=== PATIENT | female | born 1960 | race Caucasian/White ===

== ENCOUNTER 2020-07-21 08:43 | Outpatient (CLI) | payer MEDICARE, OTHER, SELFPAY ==
--- NOTE | ~2020-07-21 | MM_ITS ---
EXAMINATION: MM screening juan [facility] BI w davina HISTORY: Screening TECHNIQUE: Craniocaudal and mediolateral oblique 3-D tomosynthesis images were obtained and synthetic 2-D images were generated. CAD analysis was submitted and interpreted. COMPARISON: Comparison to multiple prior studies sequentially, with oldest reviewed study dated 07/07. BREAST PARENCHYMAL COMPOSITION: The breasts are heterogeneously dense, which may obscure small masses . FINDINGS: There is no evidence of suspicious mass, calcification, or architectural distortion to sugg est malignancy in either breast. There has been no suspicious interval change. IMPRESSION: 1. No mammographic evidence of malignancy. 2. Recommend routine screening mammography in one year. BI-RADS Category 1: Negative Reviewed, dictated and finalized at location A.
--- NOTE | ~2020-07-21 | DEXA_ITS ---
Bone Density Report Name: Denita Eckert Age: 60 Sex: Female Ethnicity: White Date of : 1960 Indication: postmenopausal; parental hip fracture; prior fracture; hysterectomy; Referring Provider: Flora Alvarenga Study: Bone densitometry was performed. Exam Date: July 21, 2020 Accession number: [id number] Bone Density: Region BMD T-score Z-score Classification AP Spine (L1-L4) 0.740 -2.8 -1.2 Osteoporosis Femoral Neck (Left) 0.569 -2.5 -1.1 Osteoporosis Total Hip (Left) 0.712 -1.9 -0.8 Osteopenia Total Hip Bilateral Avg 0.721 -1.8 -0.8 Osteopenia Femoral Neck (Right) 0.535 -2.8 -1.4 Osteoporosis Total Hip (Right) 0.729 -1.7 -0.7 Osteopenia World Health Organization criteria for BMD impression classify patients as: Normal (T-score at or above -1.0), Osteopenia (T-score between -1.0 and -2.5), or Osteoporosis (T-score at or below -2.5). 10-year Fracture Risk: FRAX not reported because: Some T-score for Spine Total or Hip Total or Femoral Neck at or below -2.5 Treated for osteoporosis Clinical Information Provided by Patient: Has had a low trauma fracture Parent has had a hip fracture Is being treated for osteoporosis Has used the following medications: Fosamax (i.e. alendronate), Vitamin D, Calcium Has the following medical conditions: Hysterectomy Patient maximum height was 60 Menopause Age: 28 Does not regularly consume dairy products Onset of menses at age 10 Number of children 2 Impression: The patient has established osteoporosis, based on the Total Spine T-score and the existence of a prior fracture. The patient has risk factors, including: parental hip fracture, previous fracture. Discussion: It is important to ask patients whether they are taking their medications and to encourage continued and appropriate compliance with their osteoporosis therapies to reduce fracture risk. It is also important to review their risk factors and encourage appropriate calcium and vitamin D intakes, exercise, fall prevention and other lifestyle measures. Follow-Up: Consider a repeat BMD and Vertebral Fracture Assessment (VFA) exam in 2 years or sooner if medically necessary, to reassess this patient's status. Reported by: HERMINIA on 07/21/2020 9:12:00 AM. Reviewed, dictated and finalized at location AAlessandro STOKES
== END 2020-07-21 08:44 | disposition home or self-care (01) ==
LOC: ANHIMG 08:48
PROVIDERS: PCP Family Medicine; Visit Provider Physician Assistant
DX: Z12.31 Encounter for screening mammogram for malignant neoplasm of breast (principal); Z78.0 Asymptomatic menopausal state; M85.89 Other specified disorders of bone density and structure, multiple sites; M81.0 Age-related osteoporosis without current pathological fracture
CPT/HCPCS: 77063; 77067; 77080

== ENCOUNTER 2021-09-29 09:24 | Outpatient (CLI) | payer MEDICARE, OTHER, SELFPAY ==
--- NOTE | ~2021-09-29 | MM_ITS ---
EXAMINATION: MM screening [facility] BI w davina HISTORY: Screening mammogram TECHNIQUE: Craniocaudal and mediolateral oblique 3-D tomosynthesis images were obtained and synthetic 2-D images were generated. CAD analysis was submitted and interpreted. COMPARISON: 07/21/2020, 07/08/2017, 11/07/2014 BREAST PARENCHYMAL COMPOSITION: There are scattered areas of fibroglandular density. FINDINGS: There is no suspicious mass, calcification, or architectural distortion to suggest malignan cy in either breast. There has been no suspicious interval change. IMPRESSION: 1. No mammographic evidence of malignancy. 2. Recommend routine screening mammography in one year. BI-RADS Category 1: Negative Reviewed, dictated and finalized at location A.
== END 2021-09-29 09:25 | disposition home or self-care (01) ==
PROVIDERS: PCP Family Medicine; Visit Provider Family Medicine
DX: Z12.31 Encounter for screening mammogram for malignant neoplasm of breast (principal)
CPT/HCPCS: 77063; 77067

== ENCOUNTER 2022-12-30 09:22 | Outpatient (CLI) | payer MEDICARE, OTHER, SELFPAY ==
--- NOTE | ~2022-12-30 | MM_ITS ---
EXAMINATION: MM screening juan r BI w davina HISTORY: Screening mammogram TECHNIQUE: Craniocaudal and mediolateral oblique 3-D tomosynthesis images were obtained and synthetic 2-D images were generated. CAD analysis was submitted and interpreted. COMPARISON: 09/29/2021, 07/21/2020, 07/08/2017 bilateral screening mammogram examinations BREAST PARENCHYMAL COMPOSITION: The breasts are heterogeneously dense, which may obscure small masses . FINDINGS: There is no evidence of suspicious mass, calcification, or architectural distortion to sugg est malignancy in either breast. There has been no suspicious interval change. IMPRESSION: 1. No mammographic evidence of malignancy. 2. Recommend routine screening mammography in one year. BI-RADS Category 1: Negative Reviewed, dictated and finalized at location A.
== END 2022-12-30 09:23 | disposition home or self-care (01) ==
PROVIDERS: PCP Family Medicine; Visit Provider Family Medicine
DX: Z12.31 Encounter for screening mammogram for malignant neoplasm of breast (principal)
CPT/HCPCS: 77063; 77067

== ENCOUNTER 2024-06-26 08:50 | Outpatient (CLI) | payer MEDICARE, SELFPAY ==
--- NOTE | ~2024-06-26 | MM_ITS ---
EXAMINATION: MM screening juan r BI w davina HISTORY: Screening TECHNIQUE: Craniocaudal and mediolateral oblique 3-D tomosynthesis images were obtained and synthetic 2-D images were generated. CAD analysis was submitted and interpreted. COMPARISON: Comparison to multiple prior studies sequentially, with oldest reviewed study dated 11/11. BREAST PARENCHYMAL COMPOSITION: Dense: The breasts are heterogeneously dense, which may obscure small masses FINDINGS: There is no evidence of suspicious mass, calcification, or architectural distortion to sugg est malignancy in either breast. There has been no suspicious interval change. IMPRESSION: 1. No mammographic evidence of malignancy. 2. Recommend routine screening mammography in one year. BI-RADS Category 1: Negative Reviewed, dictated and finalized at location A.
--- OUTSIDE RECORDS SUMMARY | 2024-06-26 09:13 | XMS_ITS | Clinical Summary ---
Author Organization [facility] Administrative Offices Address [address] [place] [address] Care Team Providers Care Threader Operator Name Role Phone Sydnie Jordan MD Primary Care Provider [phone] Allergies Active Allergy Reactions Criticality Noted Date Comments Iodinated Contrast Media Rash,Itching Low 01/06/2022 Opioids - Morphine Analogues Nausea and Vomiting Low 01/06/2022 Prednisone Other (See Comments) 01/06/2022 High blood pressure Medications ALPRAZolam (XANAX) 0.5 mg tablet Take 0.5 mg by mouth 3 times daily as needed. Active famotidine (PEPCID) 20 mg tablet Take 20 mg by mouth daily. Active cyclobenzaprine HCl (FLEXERIL ORAL) Take by mouth. Activ e naloxone (NARCAN) 4 mg/spray [place], Non-Aerosol EMERGENCY USE ONLY: Administer 1 spray (4 mg) in one nostril one time. May repeat in alternating nostrils every 2-3 min until responsive or EMS arrives. 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 Gender Identity Not on file Sexual Orientation Not on file Last Filed Vital Signs Vital Sign Reading Time Taken Comments Blood Pressure 108/57 01/08/2022 12:00 PM CDT Pulse 74 01/08/2022 12:00 PM CDT Temperature 36.9 C (98.5 F) 01/08/2022 12:00 PM CDT Respiratory Rate 18 01/08/2022 12:00 PM CDT Oxygen Saturation 99% 01/08/2022 12:00 PM CDT Inhaled Oxygen Concentration - - Weight 44.1 kg (97 lb 4.8 oz) 01/06/2022 11:44 P M CDT Height 149.9 cm (4' 11 ) 01/06/2022 11:44 PM CDT Body Mass Index 19.65 01/06/2022 11:44 PM CDT Plan of Treatment Health Maintenance Due Date Last Done Comments DTAP/TDAP/TD VACCINES (1 - Tdap) 1977 PNEUMOCOCCAL VACCINE 50+ YEARS (1 of 2 - PCV) 02/24/19 77 BREAST CANCER SCREENING 1998 COLORECTAL SCREENING 2003 Colorectal Cancer Screening 2003 FIT-DNA Q 3 years 2003 FIT/FOBT Q 1 year 2003 Flex Sig/CT Colonography Q 5 years 2003 ZOSTER VACCINE (1 of 2) 02/25/2008 RSV VACCINE (60+ or ) (1 - Risk 60-74 years 1-dose series) 2018 OSTEOPOROSIS SCREENING 2023 INFLUENZA VACCINE (#1) 2023 Insurance MEDICARE RAILROAD GENERIC PAYOR Advance Directives For more information, please contact: [phone] * Full Code (Latest Code Status on File) Date Activated Date Inactivated Comments 01/07/2022 12:48 AM 01/08/2022 6:13 PM Care Teams Threader Operator Relationship Specialty Start Date End Date Sydnie Jrodan MD [address] [place] [address] PCP - General Family Practice 09/26/14
--- OUTSIDE RECORDS SUMMARY | 2024-06-26 09:13 | XMS_ITS ---
Author Organization [facility] arjun Address [address] [place] [address] Care Team Providers Care Radiologist Diagnostic Name Role Phone Natty Abdul Primary Care Provider Barrington Light Unavailable [phone] Natty Abdul MD Unavailable Unavailable REASON FOR VISIT SI injection Vital Signs Temperature 98.1 degrees Fahrenheit 10/27/19 24 Blood pressure systolic 106 mm Hg 10/27/19 24 Blood pressure diastolic 68 mm Hg 024 Heart Rate 72 /min 10/27/2023 Height 59 in 10/27/2023 Weight 93.2 lbs 10/27/2023 BMI 18.82 kg/m2 10/27/2023 Oximetry 100 % 10/27/2023 Height-cm 149.86 cm 10/27/2023 Weight-kg 42.27 kg 10/27/2023 Procedures Procedure Date Ordered Date Performed Result Body Sit e MAJOR JOINT INJECTION W/ US 10/27/2023 N/A Encounters Encounter Location Date Provider Diagnosis [facility] [address] [place] [address] 10/27/2023 Barrington Light Joint disorder, unspecified M25.9 Assessments Encounter Date Diagnosis (ICD Code) Assessment Notes Treatment Notes Treatment Clinical Notes Section Notes 10/27/2023 Joint disorder, unspecified (ICD-10 - M25.9) Plan Of Treatment Pending Test Test Name Order Date MAJOR JOINT INJECTION W/ US 10/27/2023 Next Appt Details Follow Up: 2 Weeks, Reason: Progress Notes * Denita ECKERT JillianDOB: 8 (63 yo F)Acc No.[id number]:10/27/2023 Patient: Denita MEDELLIN Provider: Sim LIGHT MD :1960 A ge:63 Y S ex:Female Date:10/27/2023 Address:[address] [place] [address] Pcp:Natty Abdul Subjective: * Chief Complaints: * 1 . SI injection. * HPI: A dvance Care Planning: The patient returns for re-evaluation and consideration of an injection of the right sacroiliac joint with anesthetic/corticosteroid. The patient reports no change in the symptoms with her clinical findings indicating pathology/dysfunction at the right SI joint. * Medical History: Objective: * Vitals: B P:106/68mm Hg, HR:72/min, Temp:98.1F, Oxygen sat %:100%, Wt:93.2lbs, Wt- k.27kg, Ht:59in, Ht-cm:149.86cm, BMI:18.82Index, Body Surface Area:1.33. * Examination: G eneral Examination: P melissa and SI Joint: Pelvis and SI Joint Examination -> RonArndt is painful on the lright. Tenderness to palpation to right sacral sulcus. Range of the morion in the hip is normal. Assessment: * Assessment: 1. J oint disorder, unspecified - M25.9 (Primary) Plan: * Treatment: * Procedures: I nformed consent was obtained verbally after a discussion of the risks and benefits of the procedure, including infection, inadvertent placement of the injectate into unexpected locations, skin dimpling, and discoloration. The patient wished to proceed with the injection procedure. Using standard aseptic technique the right SIJ was visualized with ultrasound guidance and prepped using chlorhexidine. The ultrasound probe was similarly prepared for aseptic use. The tendon was injected with imaging guidance using a 4:1 mixture of bupivicaine and corticosteroid (triamcinilone 40mg/ml) the. A total of 5 cc was injected at the site. The procedure was well tolerated and there were no initial complications. Following the injection the patient was instructed to ice the area using standard post injection icing and ululy-oy-soghym protocol. Effectiveness of the injection will be evaluated at the next office visit, with further treatment to be determined at that time. * Procedure Codes: 2 0611 DRAIN/INJ JOINT/BURSA W/US, Modifiers: RT , J3301 INJ TRIAMCINOLONE ACETONIDE 10 MG, S0020 MARCAINE * Follow Up: 2 Weeks * Billing Information: * Visit Code: * Procedure Codes: 27657 DRAIN/INJ JOINT/BURSA W/US. Modifiers: RT J3301 INJ TRIAMCINOLONE ACETONIDE 10 MG. S0020 MARCAINE. * Sign off status: Completed true * Provider: Sim LIGHT MD Date: 0 10/27/2023 Generated for Tejas marion/Juan Miguel/Alek on: 0 06/26/2024 09:13 AM CDT History and Physical Notes * HPI (History of Present Illness) Category Sub-Category Detail Notes Category Not es Advance Care Planning The pa murphy returns for re-evaluation and consideration of an injection of the right sacroiliac joint with anesthetic/corticosteroid. The patient reports no change in the symptoms with her clinical findings indicating pathology/dysfunction at the right SI joint. Examination Category Sub-Category Detail Notes Category Not es General Examination Pelvis a nd SI Joint: Pelvis and SI Joint Examination -> RonArndt is painful on the lright. Tenderness to palpation to right sacral sulcus. Range of the morion in the hip is normal
--- OUTSIDE RECORDS SUMMARY | 2024-06-26 09:13 | XMS_ITS | Encounter Summary ---
Author Organization [facility] Address 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 Gender Identity Not on file Sexual Orientation Not on file documented as of this encounter Plan of Treatment Not on file documented as of this encounter Procedures Procedure Name Priority Date/Time Associated Diagnosis Comments HEMOGLOBIN AND HEMATOCRIT Routine 05/06/2008 10:07 AM COMPENSATION ADVISOR documented in this encounter Results * HEMOGLOBIN AND HEMATOCRIT (05/06/2008 10:07 AM COMPENSATION ADVISOR) HEMOGLOBIN 12.6 11.8 - 14.8 g/dL [facility] HEMATOCRIT 38.4 35.5 - 44.0 % [facility] Blood specimen (specimen) 05/06/2008 10:07 AM COMPENSATION ADVISOR 05/06/2008 10:54 AM COMPENSATION ADVISOR us Cleveland Arboleda MD HEMATOLOGY ORDERABLES Final Res ult INTERFACE SYSTEM Refer to clinic/hospital department [facility] CLIA# [id number] [address] [place] [address] documented in this encounter Visit Diagnoses Diagnosis Unspecified hearing loss documented in this encounter Care Teams Clerical Adviser Relationship Specialty Start Date End Date Sydnie Jordan MD [address] [place] [id number] PCP - General Family Practice 09/26/14 documented as of this encounter
--- OUTSIDE RECORDS SUMMARY | 2024-06-26 09:13 | XMS_ITS | Clinical Summary ---
Author Organization [facility] [employer] Address [address] [place] [address] Care Team Providers Care Petrologist Name Role Phone Sydnie Jordan MD Primary Care Provider [phone] Source Comments [facility] [employer],non-owned Affiliates and Associated Physician Practices is amultiple site organization consisting of ambulatory clinics and hospital sitesin [place], [place], [place] and [place]. This disclosure is being madepursuant to the Care Everywhere program and may not contain all information available regarding this patient. Last updated 17.[facility] [employer] Allergies Active Allergy Reactions Criticality Noted Date Comments Contrast-Iodinated Agents For Ct/Other Rash Medium 11/28/2017 Medications * Be aware that medications may not be up to date on this document. Alwaysverify current medications with the patient. Medication Sig Dispensed Refills Start Date End Date Status Loratadine (CLARITIN) 10 MG Active montelukast (SINGULAIR) 10 MG tablet Take 10 mg by mouth at bedtime Active fluticasone propionate (FLONASE ALLERGY RELIEF) 50 MCG/ACT nasal spray [place] 2 sprays into each nostril as needed Active naproxen EC (EC-NAPROSYN) 500 MG tablet Take 500 mg by mouth 2 times daily Active aspirin (ASPIRIN) 325 MG tablet Take 325 mg by mouth once daily Active albuterol HFA (PROAIR HFA) 108 (90 BASE) MCG/ACT inhaler Inhale 2 puffs by mouth every 6 hours as needed Active famotidine (PEPCID) 20 MG tablet Take 20 mg by mouth once daily Active Ergocalciferol (VITAMIN D2) 2000 UNITS Active Magnesium 100 MG Active ALPRAZolam (XANAX) 0.5 MG tablet Take 0.5 mg by mouth 3 times daily as needed for Anxiety Active buPROPion XL 24hr (WELLBUTRIN XL) 150 MG tablet Take 150 mg by mouth 3 times daily Active Active Problems Problem Noted Date Diagnosed Date Dry eye syndrome 02/20/2018 Convergence insufficiency 12/04/2017 Intermittent exotropia 12/04/2017 Pain around left eye 12/04/2017 Family History Medical History Relation Name Comments CVA Father Hypertension Father ALS - Amyotrophic Lateral Sclerosis Mother CAD (Coronary Artery Disease) Mother Thyroid Disease Mother Relation Name Status Comments Father Mother Social History Tobacco Use Types Packs/Day Years Used Date Smoking Tobacco: Never Smokeless Tobacco: Never Sex and Gender Information Value Date Recorded Sex Assigned at Not on file Gender Identity Not on file Sexual Orientation Not on file Plan of Treatment Health Maintenance Due Date Last Done Comments BONE DENSITY TESTING 1960 COLOGUARD (AGES 45-75) - COL ON CA SCREENING 1960 COLON MONITORING 1960 COLONOSCOPY - COLON CA SCREENING 1960 CT COLONOGRAPHY - COLON CA SCREENING 1960 Colorectal Cancer Screening 1960 FIT - COLON CA SCREENING 1960 FLEX SIG - COLON CA SCREENING 1960 LIPID TESTING 1960 MAMMOGRAM 1960 MEDICARE AWV 12 MONTHS 1960 HEPATITIS C SCREENING 02/20/1976 DTAP/TDAP/TD VACCINES (1 - Tdap) 1977 PNEUMOCOCCAL VACCINE 50+ (1 of 1 - PCV) 02/25/2008 ZOSTER VACCINE (1 of 2) 02/25/2008 COVID-19 VACCINE ( - 2023-2 5 season) 2023 DEPRESSION SCREENING 03/21/2024 INFLUENZA VACCINE (Season Ended) 2024 Respiratory Syncytial Virus (RSV) Vaccine Pt: or over 60 yrs (1 - 1-dose 75+ series) 2033 HEPATITIS B VACCINE Aged Out No longe r eligible based on patient's age to complete this topic HIB VACCINE Aged Out No longer eligi ble based on patient's age to complete this topic HPV VACCINE Aged Out No longer eligi ble based on patient's age to complete this topic MENINGOCOCCAL (Group B) VACC INE SHARED DECISION-MAKING Aged Out No longer eligibl e based on patient's age to complete this topic MENINGOCOCCAL GROUPS A/C/Y/W VACCINE Aged Out No longer eligible b ased on patient's age to complete this topic Care Teams Petrologist Relationship Specialty Start Date End Date Sydnie Jordan MD [address] [place] [address] PCP - General 11/28/17
--- OUTSIDE RECORDS SUMMARY | 2024-06-26 09:13 | XMS_ITS ---
Author Organization [facility] arjun Address [address] [facility] [address] [place] [address] Care Team Providers Care Assistant Professor Of Spanish Name Role Phone Natty Abdul Primary Care Provider Barrington Light Unavailable [phone] Natty Abdul MD Unavailable Unavailable REASON FOR VISIT 3 week f/u Vital Signs Temperature 97.5 degrees Fahrenheit 11/16/19 24 Blood pressure systolic 112 mm Hg 11/16/19 24 Blood pressure diastolic 68 mm Hg 024 Heart Rate 75 /min 11/16/2023 Height 59 in 11/16/2023 Weight 90 lbs 11/16/2023 BMI 18.18 kg/m2 11/16/2023 Oximetry 100 % 11/16/2023 Height-cm 149.86 cm 11/16/2023 Weight-kg 40.82 kg 11/16/2023 Encounters Encounter Location Date Provider Diagnosis [facility] [address] [facility] [address] [place] [address] 11/16/2023 Barrington Light Joint disorder, unspecified M25.9 Assessments Encounter Date Diagnosis (ICD Code) Assessment Notes Treatment Notes Treatment Clinical Notes Section Notes 11/16/2023 Joint disorder, unspecified (ICD-10 - M25.9) She will see if the present flare up calms down and will seek further treatment as needed Plan Of Treatment Treatment Notes Assessment Notes Joint disorder, unspecified She will see if the present flare up calms down and will seek further treatment as needed Next Appt Details Follow Up: prn, Reason: Progress Notes * Denita ECKERT JillianDOB: 8 (63 yo F)Acc No.[id number]:11/16/2023 Patient: Denita MEDELLIN Provider: Sim LIGHT MD :1960 A ge:63 Y S ex:Female Date:11/16/2023 Address:[address] [place] [address] Pcp:Natty Abudl Subjective: * Chief Complaints: * 1 . 3 week f/u. * HPI: A dvance Care Planning: She reports left sided radiating episodic sx from the SIJ and distally. she was doing well prior to the present exacerbation. she has had prior treatments and injections. * Medical History: Objective: * Vitals: B P:112/68mm Hg, HR:75/min, Temp:97.5F, Oxygen sat %:100%, Wt:90lbs, Wt- k.82kg, Ht:59in, Ht-cm:149.86cm, BMI:18.18Index, Body Surface Area:1.3. * Examination: G eneral Examination: P melissa and SI Joint: Pelvis and SI Joint Examination -> Ronde Faybe is painful on the lright. Tenderness to palpation to right sacral sulcus. Range of the morion in the hip is normal. Cervical Spine/Neck: RANGE OF MOTION OF NECK: -> normal in all directions SPURLING'S: -> Spurling's sign is absent. FACET LOADING: -> mid- cervicals SHOULDER JOINT: - > normal range of motion REFLEXES: -> 2 plus bilaterally SENSATIONS: -> normal bilaterally MOTOR STRENGTH: -> normal VERTEBRAL SPINE TENDERNESS: -> absent PARASPINAL MUSCLE SPASM: -> absent bilaterally TRAPEZIUS TENDERNESS: -> absent bilaterally. Assessment: * Assessment: 1. J oint disorder, unspecified - M25.9 (Primary) Plan: * Treatment: * Follow Up: p rn * Billing Information: * Visit Code: 50506 Office Visit, Est Pt., Level 3. * Procedure Codes: * Sign off status: Completed true * Provider: Sim LIGHT MD Date: 0 11/16/2023 Generated for Tejas marion/Juan Miguel/Danielitoitting on: 0 06/26/2024 09:13 AM CDT History and Physical Notes * HPI (History of Present Illness) Category Sub-Category Detail Notes Category Not es Advance Care Planning She re ports left sided radiating episodic sx from the SIJ and distally. she was doing well prior to the present exacerbation. she has had prior treatments and injections Examination Category Sub-Category Detail Notes Category Not es General Examination Pelvis a nd SI Joint: Pelvis and SI Joint Examination -> Heather Charles is painful on the lright. Tenderness to palpation to right sacral sulcus. Range of the morion in the hip is normal. Cervical Spine/Neck: RANGE OF MOTION OF NECK: -> normal in all directions SPURLING'S: -> Spurling's sign is absent. FACET LOADING: -> mid- cervicals SHOULDER JOINT: -> normal range of motion REFLEXES: -> 2 plus bilaterally SENSATIONS: -> normal bilaterally MOTOR STRENGTH: -> normal VERTEBRAL SPINE TENDERNESS: -> absent PARASPINAL MUSCLE SPASM: -> absent bilaterally TRAPEZIUS TENDERNESS: -> absent bilaterally
--- OUTSIDE RECORDS SUMMARY | 2024-06-26 09:14 | XMS_ITS | Patient Health Record ---
Author Organization [facility] Address [address] [place] [address] Care Team Providers Care Brick Or Block Maker Name Role Phone Natty Abdul Primary Care Provider Barrington Maurer Unavailable [phone] Natty Abdul MD Unavailable Unavailable NicholeHanny booker Unavailable [phone] Results Component Value Reference Range Notes XR Hip Left inc Pelvis (Not yet reviewed by provider) Interpretation: Performing Lab: Notes/Report: Original Report EXAM: HIP COMP (2-3 VIEW) W/PELVIS LT, HIP COMP (2-3 VIEW) W/PELVIS LT HISTORY: Bilateral hip pain COMPARISON: None. FINDINGS: Number of views: 2 EACH There is no evidence of fracture or dislocation. No other significant bone, joint, or soft tissue abnormality is identified. There is mild bilateral symmetric joint space narrowing. IMPRESSION: Negative. . Read by: Honey Shen M.D. Reviewed and Electronically Signed by: Honey Shen M.D. - Original Report EXAM: HIP COMP (2-3 VIEW) W/PELVIS LT, HIP COMP (2-3 VIEW) W/PELVIS LT HISTORY: Bilateral hip pain COMPARISON: None. FINDINGS: Number of views: 2 EACH There is no evidence of fracture or dislocation. No other significant bone, joint, or soft tissue abnormality is identified. There is mild bilateral symmetric joint space narrowing. IMPRESSION: Negative. . Read by: Honey Shen M.D. Reviewed and Electro nically Signed by: Honey Shen M.D. XR Hip Right inc Pelvis (Not yet reviewed by provider) Interpretation: Performing Lab: Notes/Report: Original Report EXAM: HIP COMP (2-3 VIEW) W/PELVIS LT, HIP COMP (2-3 VIEW) W/PELVIS LT HISTORY: Bilateral hip pain COMPARISON: None. FINDINGS: Number of views: 2 EACH There is no evidence of fracture or dislocation. No other significant bone, joint, or soft tissue abnormality is identified. There is mild bilateral symmetric joint space narrowing. IMPRESSION: Negative. . Read by: Honey Shen M.D. Reviewed and Electronically Signed by: Honey Shen M.D. - Original Report EXAM: HIP COMP (2-3 VIEW) W/PELVIS LT, HIP COMP (2-3 VIEW) W/PELVIS LT HISTORY: Bilateral hip pain COMPARISON: None. FINDINGS: Number of views: 2 EACH There is no evidence of fracture or dislocation. No other significant bone, joint, or soft tissue abnormality is identified. There is mild bilateral symmetric joint space narrowing. IMPRESSION: Negative. . Read by: Honey Shen M.D. Reviewed and Electro nically Signed by: Honey Shen M.D. 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 Problem Cervical spondylosis without myelopathy (217835006) Other spondylosis, cervical region (M47.892) Active confirmed Problem Cervical radiculopathy (17145623) Cervical disc disorder with radiculopathy, unspecified cervical region (M50.10) Active confirmed Problem Cervical radiculopathy (53756623) Radiculopathy, cervical region (M54.12) Active confirmed Vital Signs Heart Rate 75 /min 11/16/2023 Temperature 97.5 degrees Fahrenheit 11/16/2023 Height-cm 149.86 cm 11/16/2023 Oximetry 100 % 11/16/2023 Blood pressure diastolic 68 mm Hg 11/16/2023 Weight-kg 40.82 kg 11/16/2023 Height 59 in 11/16/2023 Blood pressure systolic 112 mm Hg 11/16/2023 Weight 90 lbs 11/16/2023 BMI 18.18 kg/m2 11/16/2023 Procedures Procedure Date Ordered Date Performed Result Body Sit e MAJOR JOINT INJECTION WITH ULTRASOUND 08/16/2023 N/A MAJOR JOINT INJECTION W/ US 10/27/2023 N/A Encounters Encounter Location Date Provider Diagnosis [facility] [address] [place] [address] 08/11/2023 Hanny Yanes [facility] [address] [place] [address] 08/16/2023 Barrington Maurer [facility] [address] [place] [address] 08/11/2023 Barrington Maurer Radiculopathy, cervical region M54.12 ; Radiculopathy, lumbar region M54.16 and Joint disorder, unspecified M25.[address] [facility] [address] [place] [address] 08/16/2023 Barrington Maurer Trochanteric bursiti s, left hip M70.[address] [facility] [address] [place] [address] 09/13/2023 Barrington Maurer Primary osteoarthrit is of right hip M16.[address] [facility] [address] [place] [address] 10/27/2023 Barrington Maurer Joint disorder, unspecified M25.[address] [facility] [address] [place] [address] 11/16/2023 Barrington Maurer Joint disorder, unspecified M25.[address] [facility] [address] [place] [address] 09/13/2023 Barrington Maurer Assessments Encounter Date Diagnosis (ICD Code) Assessment Notes Treatment Notes Treatment Clinical Notes Section Notes 08/11/2023 Radiculopathy, cervical region (ICD-10 - M54.12) Pain has improved with CDI injection. She will continue home exercises for range of motion 08/16/2023 Trochanteric bursitis, left hip (ICD-10 - M70.62) 09/13/2023 Primary osteoarthritis of right hip (ICD-10 - M16.11) Continue to address hip, Review films when available 10/27/2023 Joint disorder, unspecified (ICD-10 - M25.9) 11/16/2023 Joint disorder, unspecified (ICD-10 - M25.9) She will see if the present flare up calms down and will seek further treatment as needed 08/11/2023 Radiculopathy, lumbar region (ICD-10 - M54.16) She will continue home exercises 08/11/2023 Joint disorder, unspecified (ICD-10 - M25.9) Schedule for left SI joint injection Plan Of Treatment Pending Test Test Name Order Date X ray : Hip, bilateral 09/13/2023 XR Hip Left inc Pelvis 09/13/2023 XR Hip Right inc Pelvis 09/13/2023 MAJOR JOINT INJECTION W/ US 10/27/2023 MRI : Cervical without Contrast 05/31/19 24 MRI : Lumbar without contrast 10/20/2022 EMG UE 5+ With NC +8 04/24/2020 MAJOR JOINT INJECTION WITH ULTRASOUND MAJOR JOINT INJECTION WITH ULTRASOUND MAJOR JOINT INJECTION WITH ULTRASOUND Insurance Providers Payer Name Payer Address Payer Phone Subscriber Number Group Number Insured Name Patient Relationship to Insured Coverage Start Date Coverage End Date [employer] Medicare Advantage [facility] [address] [address] [place] [address] [id number] Denita Eckert Self - patient is the insured Medical (General) History Surgical History Surgery Date(Month/Year) Cervical vanessa Shoulder Hysterectomy Appendectomy Gall bladder
--- OUTSIDE RECORDS SUMMARY | 2024-06-26 09:14 | XMS_ITS | Clinical Summary ---
Author Organization [facility] Care Team Providers Care Service Center Supervisor Name Role Phone Unavailable Primary Care Provider Unavailabl e Social History Tobacco Use Types Packs/Day Years Used Date Smoking Tobacco: Never Assessed Comments Unknown Sex and Gender Information Value Date Recorded Sex Assigned at Not on file Legal Sex Female 10:42 AM [employer] Gender Identity Not on file Sexual Orientation Not on file Plan of Treatment Health Maintenance Due Date Last Done Comments DEXA Bone Density 1960 Hepatitis C Virus (HCV) Screening 1960 TdaP Immunization 1960 Pap Smear 1979 Cervical Cancer Screening (CCS) 02/25/1988 HPV/Cotest 02/25/1988 Colonoscopy 2003 Colorectal Cancer Screening 2003 Cologuard 02/25/2008 Immunochemical Fecal Occult Blood 02/25/2008 Mammogram 02/25/2008 Pneumococcal Immunization (5 0+ years) (1 of 1 - PCV) 02/25/2008 Zoster Immunization (1 of 2) 02/25/2008 Influenza Immunization (#1) 2023 SARS-COV-2 Immunization (2023-25 season) 2023 Respiratory Syncytial Virus (RSV) Immunization (Adult) (1 - 1-dose 75+ series) 2033 Hepatitis B Immunization Aged Out No longer eligible based on patient's age to complete this topic Meningococcal Immunization (ACWY) Aged Out No longer eligible based on patient's age to complete this topic Rotavirus Immunization Aged Out No lo nger eligible based on patient's age to complete this topic
--- OUTSIDE RECORDS SUMMARY | 2024-06-26 09:14 | XMS_ITS | Data Portability ---
Author Organization [place] [facility] [place] [email or web address], Main Office Address [address] [place] [address] Assessment No assessment recorded. Plan of Treatment Reminders Order Date Submit Date Provider Last Modified By Organization Details Last Modified Time Details Appointments None recorded. Lab celiac disease comprehensi ve panel, serum 2022 023 [facility], [address] , [place], [address], 3 12:29:20 fecal fat, qualitative , stool 2022 023 [facility], [address] , [place], [address], 3 20:01:03 pancreatic elastase, stool 2022 023 [facility], [address] , [place], [address], 3 20:01:03 food allergen panel, serum 2022 023 [facility], [address] , [place], [address], 3 12:29:22 vitamin D, 25-hydroxy, total, serum 2022 023 [facility], [address], [place], [address], 3 12:29:23 CMP, serum or plasma 2022 023 [facility], [address], [place], [address], 3 12:29:18 phosphorus, serum or plasma 2022 023 [employer] [facility], [address], [place], [address], 3 12:29:18 PTH (parathyroi d hormone), intact, serum or plasma 2022 023 BRISSA [employer] [facility], [address], [place], [address], 3 12:29:22 cortisol, am, serum 2022 023 BRISSA [employer] [facility], [address], [place], [address], 3 12:29:21 dexamethaso ne, serum 2022 023 BRISSA [employer] [facility], [address], [place], [address], 3 12:29:19 calcium, 24-hour urine 2022 023 BRISSA [employer] [facility], [address], [place], [address], 3 20:01:01 TSH + free T4, serum 2022 023 [place] [employer] [facility], [address], [place], [address], 3 12:29:24 Referral None recorded. Procedures None recorded. Surgeries None recorded. Imaging None recorded. Medication Orders None recorded. Patient TargetsNo targets recorded. Patient InstructionsNo instructions recorded. Reason for Referral None Reported. Results Created Date Observation Date Name Description Value Unit Range Abnormal Flag Note LastModifiedBy Organization Detail LastModifiedTime 07/21/19 23 07/28/2022 PHOSP HATE ( PHOSP HORUS ) phosphate ( phosphorus) 4.0 mg/dL 2.5-4. 5 normal Not Available [facility] [address] [place], [address], 07/28/2022 12:29:17 07/21/19 23 07/28/2022 COMPR EHENS MILAGROS METAB OLIC PANEL glucose 102 mg/dL 65-99 high Fasti ng refer ence inter óscar For someo ne witho ut known diabe jr, a gluco se value betwe en 100 and 125 mg/dL is consi stent with predi abete s and shoul d be confi rmed with a follo w-up test. Not Available [address], [address], 07/28/2022 12:29:18 07/21/19 23 07/28/2022 COMPR EHENS MILAGROS METAB OLIC PANEL urea nitrogen (BUN) 16 mg/dL 7-25 normal Not Available [address], [address], 07/28/2022 12:29:18 07/21/19 23 07/28/2022 COMPR EHENS MILAGROS METAB OLIC PANEL creatinine 0.58 mg/dL 0.50-1 .05 normal Not Available [address], [address], 07/28/2022 12:29:18 07/21/19 23 07/28/2022 COMPR EHENS MILAGROS METAB OLIC PANEL eGFR 101 mL/mi n/1.7 3m2 > or = 60 normal The eGFR is based on the CKD-E PI 2020 equat ion. To calcu late the new eGFR from a previ ous Creat inine or Cysta tin C resul t, go to https ://elliot w.kid vincent.o ирина/tristen mcgrath s/ kdoqi /gfr% 5Fcal culat or Not Available [address] [address] [place], [address], 07/28/2022 12:29:18 07/21/19 23 07/28/2022 COMPR EHENS MILAGROS METAB OLIC PANEL BUN/creatini ne ratio NOT APPLIC ABLE (calc ) 6-22 Not Available [facility] [address] [address], [place], [address], 07/28/2022 12:29:18 07/21/19 23 07/28/2022 COMPR EHENS MILAGROS METAB OLIC PANEL sodium 141 mmol/ L 135-14 6 normal Not Available [address], [address], 07/28/2022 12:29:18 07/21/19 23 07/28/2022 COMPR EHENS MILAGROS METAB OLIC PANEL potassium 4.7 mmol/ L 3.5-5. 3 normal Not Available [address], [address], 07/28/2022 12:29:18 07/21/19 23 07/28/2022 COMPR EHENS MILAGROS METAB OLIC PANEL chloride 103 mmol/ L 98-110 normal Not Available [address], [address], 07/28/2022 12:29:18 07/21/19 23 07/28/2022 COMPR EHENS MILAGROS METAB OLIC PANEL carbon dioxide 27 mmol/ L 20-32 normal Not Available [address], [address], 07/28/2022 12:29:18 07/21/19 23 07/28/2022 COMPR EHENS MILAGROS METAB OLIC PANEL calcium 9.7 mg/dL 8.6-10 .4 normal Not Available [address], [address], 07/28/2022 12:29:18 07/21/19 23 07/28/2022 COMPR EHENS MILAGROS METAB OLIC PANEL protein, total 7.1 g/dL 6.1-8. 1 normal Not Available [address], [address], 07/28/2022 12:29:18 07/21/19 23 07/28/2022 COMPR EHENS MILAGROS METAB OLIC PANEL albumin 4.7 g/dL 3.6-5. 1 normal Not Available [address], [address], 07/28/2022 12:29:18 07/21/19 23 07/28/2022 COMPR EHENS MILAGROS METAB OLIC PANEL globulin 2.4 g/dL_ (calc ) 1.9-3. 7 normal Not Available [address], [address], 07/28/2022 12:29:18 07/21/19 23 07/28/2022 COMPR EHENS MILAGROS METAB OLIC PANEL albumin/glob ulin ratio 2.0 (calc ) 1.0-2. 5 normal Not Available [address], [address], 07/28/2022 12:29:18 07/21/19 23 07/28/2022 COMPR EHENS MILAGROS METAB OLIC PANEL bilirubin, total 0.5 mg/dL 0.2-1. 2 normal Not Available [address], [address], 07/28/2022 12:29:18 07/21/19 23 07/28/2022 COMPR EHENS MILAGROS METAB OLIC PANEL alkaline phosphatase 60 U/L 37-153 normal Not Available [address], [address], 07/28/2022 12:29:18 07/21/19 23 07/28/2022 COMPR EHENS MILAGROS METAB OLIC PANEL AST 20 U/L 10-35 normal Not Available [address], [address], 07/28/2022 12:29:18 07/21/19 23 07/28/2022 COMPR EHENS MILAGROS METAB OLIC PANEL ALT 16 U/L 6-29 normal Not Available [address] [place], [address], 07/28/2022 12:29:18 07/21/19 23 07/28/2022 DEXAM ETHAS ONE dexamethason e 202 NG/dL Refer ence Range s for Dexam ethas one: Basel ine: Less than 20 ng/dL 1 mg dexam ethas one overn ight: 180-5 50 ng/dL (8:00 -10:0 0 AM) This test was devel oped and its shanice tical perfo rmanc e hank cteri stics have been deter mined by [facility]dy jeter . It has not been clear ed or appro oliverio by FDA. This assay has been valid ated pursu ant to the CLIA regul ation s and is used for clini jada purpo ses. Not Available [employer] [facility] [address] [place], [address], 07/28/2022 12:29:19 07/21/19 23 07/28/2022 CHATA C DISEA SE COMPR EHENS MILAGROS PANEL interpretati on No serol ogica l evide nce of chata c disea se. tTG IgA may marycruz lize in indiv idual s with chata c disea se who maint ain a glute n-carmine e diet. Consi adelina HLA DQ2 and DQ8 testi ng to rule out chata c disea se. Chata c disea se is extre brayan rare in the absen ce of DQ2 or DQ8. Not Available [employer] [facility] [address] [place], [address], 07/28/2022 12:29:20 07/21/1907/28/2022 CHATA C DISEA SE COMPR EHENS MILAGROS PANEL tissue transglutami nase Ab, IgA <1.0 U/mL Value Inter preta tion ----- ----- ----- ---- <15.0 Antib dana not detec darline > or = 15.0 Antib dana detec darline Not Available [address] [address] [place], [address], 07/28/2022 12:29:20 07/21/1907/28/2022 CHATA C DISEA SE COMPR EHENS MILAGROS PANEL immunoglobul in A 146 mg/dL 70-320 Not Available [address], [address], 07/28/2022 12:29:20 07/21/19 23 07/28/2022 CORTI ANNALEE, A.M. cortisol, A.M. 0.8 mcg/d L low Refer ence Range 8 a.m. (7-9 a.m.) Speci men: 4.0-2 2.0 Not Available [address], [address], 07/28/2022 12:29:21 07/21/1907/28/2022 PTH, INTAC T WITHO UT CALCI UM parathyroid hormone, intact 22 pg/mL 16-77 normal Inter preti ve Guide Intac t PTH Calci um ----- ----- ----- --- ----- ----- ----- -- Marycruz l Parat hyroi d Marycruz l Marycruz l Hypop irish yroid ism Low or Low Marycruz l Low Hyper parat hyroi dism Prima ry Marycruz l or High High Secon kelli High Marycruz l or Low Terti catarino High High Non-P irish yroid Hyper calce manuel Low or Low Marycruz l High Not Available [facility] [address] [address] [place], [address], 07/28/2022 12:29:22 07/21/1907/28/2022 FOOD SPECI FIC IGG ALLER GY (ADUL T) PANEL wheat (F4) IgG 3.0 mcg/m L <2.0 high Not Available [address] [place], [address], 07/28/2022 12:29:22 07/21/19 23 07/28/2022 FOOD SPECI FIC IGG ALLER GY (ADUL T) PANEL tomato (F25) IgG 2.1 mcg/m L <2.0 high Not Available [address], [address], 07/28/2022 12:29:22 07/21/19 23 07/28/2022 FOOD SPECI FIC IGG ALLER GY (ADUL T) PANEL egg white (F1) IgG 3.1 mcg/m L <2.0 high Not Available [address], [address], 07/28/2022 12:29:22 07/21/19 23 07/28/2022 FOOD SPECI FIC IGG ALLER GY (ADUL T) PANEL casein (F78) IgG <2.0 mcg/m L <2.0 Not Available [address], [address], 07/28/2022 12:29:22 07/21/19 23 07/28/2022 FOOD SPECI FIC IGG ALLER GY (ADUL T) PANEL maize/corn (F8) IgG <2.0 mcg/m L <2.0 Not Available [address], [address], 07/28/2022 12:29:22 07/21/19 23 07/28/2022 FOOD SPECI FIC IGG ALLER GY (ADUL T) PANEL yeast (F45) IgG <2.0 mcg/m L <2.0 Not Available [address], [address], 07/28/2022 12:29:22 07/21/19 23 07/28/2022 FOOD SPECI FIC IGG ALLER GY (ADUL T) PANEL peanut (F13) IgG <2.0 mcg/m L <2.0 Not Available [address], [address], 07/28/2022 12:29:22 07/21/19 23 07/28/2022 FOOD SPECI FIC IGG ALLER GY (ADUL T) PANEL soybean (F14) IgG <2.0 mcg/m L <2.0 Not Available [address] [address] [place], [address], 07/28/2022 12:29:22 07/21/19 23 07/28/2022 FOOD SPECI FIC IGG ALLER GY (ADUL T) PANEL codfish (F3) IgG <2.0 mcg/m L <2.0 Not Available [facility] [address] [address] [place], [address], 07/28/2022 12:29:22 07/21/19 23 07/28/2022 FOOD SPECI FIC IGG ALLER GY (ADUL T) PANEL cacao (chocolate) (F93) IgG <2.0 mcg/m L <2.0 Not Available [address] [address] [place], [address], 07/28/2022 12:29:22 07/21/19 23 07/28/2022 FOOD SPECI FIC IGG ALLER GY (ADUL T) PANEL coffee (F221) IgG <2.0 mcg/m L <2.0 This test was perfo rmed using a kit that has not been clear ed or appro oliverio by the FDA. The shanice tical perfo rmanc e hank cteri stics of this test have been deter mined by [facility]. This test, and any food speci fic aller gen IgG resul t, shoul d not be used for the diagn osis of aller gic or atopi c disea se state s (exce pt for sensi tivit y to milk in neona jr and glute n sensi tivit y). The use of food speci fic aller gen IgG resul ts shoul d be restr icted to the asses sment of respo nse to thera peuti c inter venti ons. Not Available [address] [address] [place], [address], 07/28/2022 12:29:22 07/21/19 23 07/28/2022 VITAM IN D,25- OH,TO LISA,I A vitamin D,25-oh,tota l,ia 76 NG/mL 30-100 normal Vitam in D Statu s 25-OH Vitam in D: Defic iency : <20 ng/mL Insuf ficie ncy: 20 - 29 ng/mL Optim al: > or = 30 ng/mL For 25-OH Vitam in D testi ng on patie nts on D2-turner pplem entat ion and patie nts for whom quant itati on of D2 and D3 fract ions is requi red, the [facility] eD(TM ) 25-OH VIT D, (D2,D 3), LC/MS /MS is recom veto d: order code 37046 (elliott ents >2yrs ). See Note 1 Note 1 For addit ional infor saeid whyte e refer to http: //[facility] citlali Mobley gnost ics.c om/fa q/FAQ 199 (This link is being provi ded for infor luis armando ochoa/ educecho webb purpo ses only. ) Not Available [employer] [address], [address], 07/28/2022 12:29:23 07/21/19 23 07/28/2022 TSH+F REE T4 TSH 0.68 mIU/L 0.40-4 .50 normal Not Available [employer] [address], [address], 07/28/2022 12:29:24 07/21/1907/28/2022 TSH+F REE T4 T4, free 1.0 NG/dL 0.8-1. 8 normal Not Available [employer] [address], [address], 07/28/2022 12:29:24 07/31/19 23 08/09/2022 CALCI UM, 24 HOUR URINE (W/O CREAT ININE ) calcium, 24 hour urine 133 mg/24 _h normal Refer ence Range 35-25 0 Low calci um diet 35-20 0 URINE VOLUM E: 1200/ 24 Not Available [address] [address] [place], [address], 08/09/2022 20:01:01 07/31/19 23 08/09/2022 FECAL FAT, QUALI TATIV E fecal fat, qualitative ABNORM AL normal abnormal Not Available [email or web address] [address] [address] [address] , [place], [address], 08/09/2022 20:01:03 07/31/19 23 08/09/2022 PANCR EATIC ELAST ASE-1 pancreatic elastase-1 >500 mcg/g Adult and Pedia tric Refer ence Range s for Pancr eatic Elast ase-1 : Marycruz l: >200 mcg/g Moder ate Pancr eatic Insuf ficie ncy: 100-2 00 mcg/g Sever e Pancr eatic Insuf ficie ncy: <100 mcg/g Elast ase-1 (E-1) assay resul ts are expre ssed in mcg/g , which repre sent mcg E1/g feces . It is not neces darleen to inter rupt enzym e subst ituti on thera py. Not Available [facility] [address] [place], [address], 08/09/2022 20:01:03 Result Notes None recorded. Problems Name Problem SNOMED Code Status Onset Date Resolution Date Notes Provider Name and Address Organization Details Recorded Time Postmenopausal osteoporosis 569235184 Active 2022 Honey Webster MD [address], [address], [place], [address], [place] 3 11:32:02 Loose stool 458703812 Active 2022 Honey Webster MD [address], [address], [place], [address], [place] 3 11:34:28 Problem Notes None recorded. Procedures Surgical History Date Name Laterality Status Provider Name and Address Organization Details Recorded Time Hysterectomy/revi se vagina completed Janey Gaines, SYSTEMS ADMINISTRATION ANALYST [facility] 05/20/2022 11:09:39 Spinal Fusion completed Janey Gaines CMA [facility] 05/20/2022 11:09:50 Gallbladder Surgery completed Janey Gaines CMA [facility] 05/20/2022 11:10:11 Appendectomy completed Janey Gaines CMA [facility] 05/20/2022 11:10:17 repair of shoulder completed Janey Gaines CMA [facility] 05/20/2022 11:10:36 Imaging Results None recorded. Procedure Notes None recorded. Medical Equipment None Reported. Allergies Allergen ID Allergen Name Allergen Category Reaction Reaction Severity Criticality Documentation Date Start Date Code Code System Note Provider Name and Address Organization Details Recorded Time 42742 Iodinated contrast media (substanc e) medicatio n Not available Not available Not available 05/20/2022 75239 2003 SNOMED Janey Gaines CMA [facility] 11:04:54 Medications Name Sig Start Date Stop Date Status Note LastModified by Organization Details LastModified Time Xanax 0.5 mg tablet Take 1 tablet 3 times a day by oral route. active Not Available Not Available No t Available tramadol 50 mg tablet active Not Available Not Available No t Available Flarex 0.1 % eye drops,suspe nsion 05/20 completed Not Available Not Available Not Available meloxicam 7.5 mg tablet Take 1 tablet every day by oral route. active Not Available Not Available No t Available dexamethaso ne 1 mg tablet Take 1 tablet once the night before your dexametha sone blood test. active Not Available Not Available No t Available montelukast 10 mg tablet active Not Available Not Available Not Available Pepcid 20 mg tablet Take 1 tablet twice a day by oral route. active Not Available Not Available No t Available zolpidem 10 mg tablet Take 1 tablet every day by oral route. active Not Available Not Available No t Available methylpredn isolone 4 mg tablets in a dose pack 05/20 completed Not Available Not Available Not Available Flexeril 5 mg tablet Take 1 tablet 3 times a day by oral route. active Not Available Not Available No t Available naloxone 4 mg/actuatio n nasal spray active Not Available Not Available Not Available Xiidra 5 % eye drops in a dropperette active Not Available Not Available Not Available albuterol 90 mcg-budeson jorge 80 mcg/actuati on HFA aerosol inhaler Inhale by inhalatio n route. active Not Available Not Available No t Available Vitals Date Recorded Body weight Body height Body mass index (BMI) Heart rate Body temperature Systolic blood pressure Diastolic blood pressure Provider Name and Address Organization Details Last Updated DateTime 3 33680.3 7 g 149.86 cm 18.7 kg/m2 83 /min 97.6 [degF] 106 mm[Hg] 68 mm[Hg] Janey Gaines CMA [facility] [employer] 11:04:23 Social History Question Answer Notes LastModified by Organizat ion Details LastModified Time Tobacco Smoking Status Never Smoker Janey Gaines CMA null, [facility] [employer] [facility] 05/20/2022 11:09:28 What Is Your Level Of Alcohol Consumption? Occasional [id number] Information not available 05/20/2022 Sex: Unknown Functional Status None recorded. Mental Status None recorded. Family History Nothing Reported. Medical History Condition Response BLINDNESS N RHEUMATIC FEVER N MRSA N BACK INJECTIONS N INFECTIOUS DISEASE N HEART ARRHYTHMIA N LUNG DISEASE/DISORDER N ESRD N INSOMNIA N HISTORY OF DRUG ABUSE N RADIATION / CHEMOTHERAPY N COPD N HIGH CHOLESTEROL / HYPERLIPIDEMIA N EYE PROBLEMS N HYPERTHYROIDISM N PVD N BLOOD DISEASES N EDEMA N SURGERY N HYPOTHYROIDISM N SHINGLES N DEPRESSION (INCLUDING POST ) N HAVE YOU BEEN HOSPITALIZED OR SEEN IN [facility] IN THE PAST YEAR ? N FAILED BACK SYNDROME N STROKE/TIA N THYROID DISEASE N BENIGN PROSTATIC HYPERPLASIA N POLYCYSTIC OVARIES N OBESITY N GERD/NAUSEA Y EXCESSIVE PERSPIRATION N ANEURYSM N OSTEOPOROSIS Y Do you have Advance directive? N ARTHRITIS N USE OF BLOOD THINNERS N NO SIGNIFICANT PAST MEDICAL HISTORY N SKIN PROBLEMS N DIABETES, TYPE N VON WILLIBRAND'S DISEASE N PARATHYROID DISEASE N BLOOD CLOTS N POST LAMINECTOMY SYNDROME N HEPATITIS / LIVER DISEASE N GOUT N ALZHEIMER'S DISEASE N ARTERIAL INSUFFICIENCY N HERPES N RETINOPATHY N HEADACHES/MIGRAINES N SEIZURES/EPILEPSY N GI PROBLEMS N Low Testosterone N DIZZINESS N HEART DISEASE/HEART PROBLEMS N AIDS/HIV N KIDNEY DISEASE N LIVER DISEASE N MALE HYPOGONADISM N NEUROPSYCHOLOGICAL N HYPERTENSION N CANCER: SPECIFY N TOURETTE'S N BLOOD TRANSFUSION N ANEMIA/BLOOD DISORDER N ATRIAL FIBRILLATION N AUTOIMMUNE DISEASE N TUBERCULOSIS N GLAUCOMA N Gynecological HistoryNo gynecological history recorded. Obstetrics History GPAL:G 0 P 0 0 0 0 Past Encounters Encounter ID Performer Location Encounter Start Date Encounter Closed Date Diagnosis/Indication Diagnosis SNOMED-CT Code Diagnosis ICD10 Code Diagnosis Note [id number] Honey Webster MD [facility] [address] [place] [address] 05/20/2022 10:49:22 05/20/2022 11:48:25 Postmenopausal osteoporosis 321324901 M81.0 Send for secondary bone loss measures- screen for parathyroi d disease, thyroid disease, hypercorti solism along with hypercalci uria. She is exhibiting weight loss and IBS symptoms so will screen for EPI and malabsorpt ion as well. She was on bisphospho iron therapy over 10 years ago and had significan t GI upset/naus ea/vomitin g on oral bisphospho iron therapy-th is will not be an option - will try to find reversible measures and will also look into prolia vs anabolic steroid therapy at return visit. Loose stool 811061706 R1 9.5 Send for elastase, fecal fat and celiac to screen for EPI and malabsorpt ion. Spent up to 45 minutes preparing to see the patient (eg, review of tests), obtaining and/or reviewing separately obtained history, performing a medically appropriat e examinatio n and evaluation , counseling and educating the patient, ordering medication s, tests, along with documentin g clinical informatio n in the electronic health record, independen tly interpreti ng results and communicat ing results to the patient. RTC in 2-3 months. Patient was provided a handwritte n lab order which contains our fax number. If she chooses to go outside of the [facility] system to obtain labwork she was advised to provide our fax number and my informatio n to the lab she will be obtaining labwork from in order to have her labs properly forwarded over for me to review so there is no loss of follow up due to use of outside network. She was also advised to contact our clinic informing us that she has completed her labwork so we are aware we will need to reach out to the appropriat e laboratory to request her results be forwarded to us so I might have the ability to review and make further medical decision making in her case. She voiced understand ing. Thank you for this consultati on. Health Concerns Section Related Observation LastModified by Organization Tess ls LastModified Time None Recorded Concern Status LastModified by Organization Details LastModified Time None Recorded Advance Directives Directive None Recorded Payers Encounter Date Sequence Insurance Name Policy Number Policy Ndiaye Covered Member ID Ndiaye Member ID Guarantor Name 05/20/2022 1 [place] Denita Eckert [id number] Denita Eckert 05/20/[address] [facility] [employer] [facility] [employer] (MEDICARE SUPPLEMENT) [id number] Denita Eckert [id number] Denita Eckert Notes Date Note Type Note Provider Name and Address Organization Details Recorded Time 05/20/2022 text/html 62 yo female com es in as referral by courtesy of Saundra MACHADO for evaluation of osteoporosis. She had sensorineural hearing loss of her right ear this past winter. She is going for hearing aid tomorrow. She has hx of broken wrist and collar bone in the past. She has no hx of kidney stones. She does take calcium citrate with D 1200 mg daily along with 800 IU of D 3 and separate vit D 5000 IU daily. She did take fosamax about 15 years ago- placed on this- was very sick- -took for 6-8 months and then stopped due to significant GI upset and nausea/vomiting. She went through surgical menopause around 33 years of age. She was placed on estrogen HRT until [age]. She has no hx breast cancer. bone density from July 2020T score of -2.8 of LST score of -2.5 of right femoral neckT score of -2.8 of left femoral neck Honey Webster MD [address] [facility], [facility] [address], [place], [address], [place] - [facility] [email or web address] 05/20/2022 13:43:00 OBGyn Episode No OBEpisode recorded.
--- OUTSIDE RECORDS SUMMARY | 2024-06-26 09:14 | XMS_ITS ---
Author Organization [facility] arjun Address [address] [facility] [address] [place] [address] Care Team Providers Care Change Person Name Role Phone Natty Abdul Primary Care Provider Barrington Maurer Unavailable [phone] aNtty Abdul MD Unavailable Unavailable REASON FOR VISIT X Ray Encounters Encounter Location Date Provider Diagnosis [facility] [address] [facility] [address] [place] [address] 09/13/2023 Barrington Maurer Plan Of Treatment No Information Progress Notes * Denita ECKERTDOB: 8 (63 yo F)Acc No.[id number]:09/13/2023 Patient: Denita MEDELLIN :1960 A ge:63 Y S ex:Female Address:[address] [place] [address], [address] * true * Date: Generated for Paulai sanam/Juan Miguel/eTransmitting on: 0 06/26/2024 09:13 AM CDT
== END 2024-06-26 08:51 | disposition home or self-care (01) ==
LOC: ANHIMG 08:51
PROVIDERS: PCP Family Medicine; Visit Provider Family Medicine
DX: Z12.31 Encounter for screening mammogram for malignant neoplasm of breast (principal)
CPT/HCPCS: 77063; 77067